=== PATIENT | female | born 1985 | race Caucasian/White ===

== ENCOUNTER 2025-10-23 01:56 | Emergency (ER) | payer OTHER ==
[~2025-10-23] VITALS: Ht 167.6 cm; Wt 100.0 kg
[2025-10-23 02:00] VITALS: O2SAT 100
[2025-10-23 02:52] LABS: BASOPHILS % 0.4 % (0.0-2.0); EOSINOPHILS % 1.1 % (0.0-5.0); HEMATOCRIT. 38.4 % (36.0-48.0); HEMOGLOBIN. 12.9 g/dL (12.0-16.0); LYMPHOCYTES % 32.4 % (20.0-50.0); MEAN PLATELET VOLUME 8.3 fl (7.4-10.4); MONOCYTES % 6.9 % (2.0-8.0); NEUTROPHILS % 59.2 % (40.0-76.0); PLATELET 263 x1000/uL (130-400); RED BLOOD CELL COUNT 4.28 mill/uL (4.2-5.4); RED CELL DISTRIBUTION WIDTH 12.7 % (11.6-14.6)
[2025-10-23 03:05] LABS: CREATININE 0.6 mg/dL (0.6-1.0); UREA NITROGEN BLOOD 9 mg/dL (9-23)
[2025-10-23 03:17] LABS: TROPONIN I HIGH SENSITIVITY 11 ng/L (3.0-34)
[2025-10-23 03:18] LABS: ASPARTATE AMINOTRANSFERASE 19 IU/L (<34); BILIRUBIN DIRECT 0.1 mg/dL (<=3.0); BILIRUBIN TOTAL 0.4 mg/dL (0.1-1.0); PROTEIN TOTAL 6.4 g/dL (6.0-8.3)
[2025-10-23] MEDS: SODIUM CHLORIDE 0.9% 1,000 ML IV ONE (03:34)
[2025-10-23] MEDS: ONDANSETRON HCL 4MG/2ML INJ IV ONE (03:44)
[2025-10-23] MEDS: MORPHINE SULFATE 2 MG/ML INJ (NOT FOR IM USE) IV ONE (04:02)
[2025-10-23] MEDS: LORAZEPAM 2MG/ML UD SYRINGE IV NR (04:02)
[2025-10-23 04:47] VITALS: BP 114/73; PULSE 92; RESP 14; TEMP 36.7; O2SAT 96
== END 2025-10-23 04:55 | disposition home or self-care (01) ==
LOC: ER 01:56 → CMPBEDREQ 07:18
DX: I48.91 Unspecified atrial fibrillation (principal); F41.9 Anxiety disorder, unspecified; Z90.710 Acquired absence of both cervix and uterus; Z79.899 Other long term (current) drug therapy
CPT/HCPCS: 99291; 92960; 96374; 71045; 96361; 80076; 80048; 83880; 83690; 83735; 85025; 84484; 36415; 93005; J2060; J2405; J2270; J7030